=== PATIENT | female | born 1990 | race American Indian/Alaskan Native ===

== ENCOUNTER 2018-03-28 08:53 | Inpatient (IN) | payer MEDICAID ==
[2018-03-28] MEDS ORDERED: ZOFRAN IV PRN (11:17)
[2018-03-28] MEDS ORDERED: NARCAN 0.4 MG/1 ML IV PRN (11:17)
[2018-03-28] MEDS ORDERED: SUBLIMAZE IV PRN (11:17)
[2018-03-28] MEDS ORDERED: BRETHINE SUB-Q PRN (11:17)
[2018-03-28] MEDS ORDERED: BRETHINE IVP PRN (11:17)
[2018-03-28] MEDS ORDERED: MINERAL OIL PO PRN (11:17)
[2018-03-28] MEDS ORDERED: LACTATED RINGERS 1,000 ML ONE (11:22)
--- NOTE | 2018-03-28 11:24 | History and Physical Report ---
History of Present Illness Date of examination: 03/28/18 Date of admission: 03/28/2018 Chief complaint: Labor Pains History of present illness: Late entry to care at 15 2/7 Weeks, 2nd trimester complicated by a UTI (GBS), treated with Amoxicillin. course also complicated by Vitamin D Deficiency and Anemia. Past History Past Medical History: no pertinent history Past Surgical History: no surgical history Family/Genetic History: none Social history: no significant social history, single - Obstetrical History Expected Date of Delivery: 04/02/18 Actual Gestation: 39 Week(s) 2 Day(s) : 5 Para: 2 Hx # Term Pregnancies: 2 Spontaneous Abortions: 1 Induced : 1 Number of Living Children: 2 #2 Infant Gender: Male year: 2,011 Birthweight: 3.033 kg Method of Delivery: Vaginal Gestational age at delivery: 41 Complications: none #3 Infant Gender: Male year: 2,014 Birthweight: 3.487 kg Method of Delivery: Vaginal Gestational age at delivery: 41 Complications: none Medications and Allergies Allergies Allergy/AdvReac Type Severity Reaction Status Date / Time No Known Allergies Allergy Verified 05/29/13 15:01 Home Medications Medication Instructions Recorded Confirmed Last Taken Type Clotrimazole [Clotrimazole 3 VAG] 1 applicator [facility] #3 cream.appl 05/29/13 01/03/14 Unknown Rx Ferrous Sulfate [Iron Supplement 325 mg PO BID #60 tablet 05/29/13 01/03/14 12/30/13 Rx 325 Mg tab] 1 Review of Systems All systems: negative - Vital Signs Vital signs: Vital Signs Temp Pulse Resp BP 98.4 F 94 H 20 102/57 03/28/18 10:15 03/28/18 10:15 03/28/18 10:15 03/28/18 10:15 Temp Pulse Resp BP Pulse Ox 98.4 F 94 H 20 102/57 03/28/18 10:15 03/28/18 10:17 03/28/18 10:15 03/28/18 10:17 - Physical Exam Breasts: Positive: normal Cardiovascular: Regular rate Lungs: Positive: Clear to auscultation, Normal air movement Abdomen: Positive: normal appearance, soft, normal bowel sounds Genitourinary (Female): Positive: normal external genitalia, normal perenium Vagina: Positive: normal moisture Uterus: Positive: enlarged - Obstetrical FHR comments: FHR: 140, moderate varability, -accels, occ. early decel Uterine Contraction Monitor Mode: External Cervical Dilatation: 3 Cervical Effacement Percentage: 60 station: -3 Uterine Contraction Pattern: Irregular Uterine Tone Measurement Phase: Resting Uterine Contraction Intensity: Moderate Results All other labs normal. Assessment and Plan A: IUP @ 39 2/7 Weeks Equivocal NST Early Labor GBS Positive P: Admit to L&D per Routine Orders Pitocin Augmentation GBS Prophylaxis
[2018-03-28] MEDS: LACTATED RINGERS 1,000 ML IV SCH ×3 (11:31→20:12)
[2018-03-28] MEDS ORDERED: AMPICILLIN/NS 2 GM/100 ML 2 GM/100 ML BAG IV ONE ×2 (11:31→20:00)
[2018-03-28] MEDS ORDERED: PITOCin/NS 30 UNIT/500ML 30 UNITS/500 ML BAG IV SCH (12:00)
[2018-03-28] MEDS ORDERED: XYLOCAINE 2% INFILTRATI ONE (12:00)
[2018-03-28] MEDS ORDERED: PITOCin/NS 20 UNIT/1000ML DRIP 20 UNITS/1,000 ML BAG IV SCH (12:00)
[2018-03-28 12:19] LABS: Hematocrit 32.5 % (30.3-42.9); Hemoglobin 10.5 gm/dl (10.1-14.3); Mean Corpuscular HGB Conc 32 % (30-34); Mean Corpuscular Volume 82 fl (79-97); Platelet Count 331 K/mm3 (140-440); Red Blood Count 3.96 M/mm3 (3.65-5.03); Red Cell Distribution Width 17.7 % (13.2-15.2)
[2018-03-28] MEDS ORDERED: AMPICILLIN/NS 1 GM/50 ML 1 GM/50 ML BAG IV SCH (15:18)
[2018-03-28 19:30] VITALS: BP 114/70
--- NOTE | 2018-03-28 19:44 | Event Note ---
S: Patient reports good movement. NST reactive. Category I FHT. O: VSS A: 39 2/7wks Non-reactive not reactive NST Category FHT P 1. BPP for well being. If biophysical profile reassuring plan to discharge patient for follow-up in clinic with labor and kick count precautions.
--- NOTE | 2018-03-28 21:26 | Ultrasound Report ---
FINAL REPORT PROCEDURE: US OB BPP WO NON-STRESS TECHNIQUE: Real-time limited sonographic examination was performed for evaluation of size, pos ition, heartbeat, fluid volume for each fetus with image documentation (1 or more fetuses). CPT 7681 5 HISTORY: well being COMPARISON: No prior studies are available for comparison. FINDINGS: biophysical profile: breathing movements: 2. movements: 2. posterior and tone: 2. Qualitative amniotic fluid volume: 2. Total score: 8/8. Heart rate: 160 beats per minute. IMPRESSION: Normal biophysical profile.
--- NOTE | 2018-03-28 21:30 | Ultrasound Report ---
FINAL REPORT PROCEDURE: US OB LIMITED TECHNIQUE: Real-time limited sonographic examination was performed for evaluation of size, pos ition, heartbeat, fluid volume for each fetus with image documentation (1 or more fetuses). CPT 7681 5 HISTORY: AURELIA COMPARISON: No prior studies are available for comparison. FINDINGS: Fetus is in cephalic presentation. Amniotic fluid index is 9.9 centimeters which is within normal mcbride its. Heart rate is 151 beats per minute. Anatomic survey not performed. IMPRESSION: Fetus is in cephalic presentation. Amniotic fluid index is 9.9 centimeters which is within normal mcbride its. Heart rate is 151 beats per minute. Anatomic survey not performed.
--- NOTE | 2018-03-28 21:35 | Event Note ---
BPP 10/11 AURELIA 9.9 OB Appt 03/29/18 Plan discharge home with labor and kick count precautions.
[2018-03-29] MEDS ORDERED: AMPICILLIN/NS 1 GM/50 ML 1 GM/50 ML BAG IV SCH (00:30)
== END 2018-03-28 23:52 | disposition home or self-care (01) | DRG 781 ==
LOC: TRG 08:53 → LD 18:44 → TRG 18:44
PROVIDERS: ADMIT Obstetrics & Gynecology; ATTEND Obstetrics & Gynecology
DX: O99.013 Anemia complicating pregnancy, third trimester (principal); O99.820 Streptococcus B carrier state complicating pregnancy; D64.9 Anemia, unspecified; Z3A.39 39 weeks gestation of pregnancy
CPT/HCPCS: 36415; 76815; 76819; 85027; 86592; 86850; 86900; 86901; G0378; J0290; J7120

== ENCOUNTER 2018-04-05 13:58 | Outpatient (CLI) | payer MEDICAID ==
--- NOTE | 2018-04-05 15:20 | Ultrasound Report ---
BIOPHYSICAL PROFILE: INDICATION: well being. COMPARISON: 03/28/2018. TECHNIQUE: Transabdominal ultrasound with Doppler interrogation. 2 - breathing movements 2 - movements 2 - posture and tone 2 - Qualitative amniotic fluid volume 8 - TOTAL SCORE OF POSSIBLE 8 Heart Rate (bpm) 155 CONCLUSION: Findings, as above.
--- NOTE | 2018-04-05 15:24 | Ultrasound Report ---
OB LIMITED INDICATION: AURELIA. COMPARISON: 03/28/2018 TECHNIQUE: Transabdominal grayscale ultrasound with Doppler interrogation. Gestation: Ortega Position: Cephalic Amniotic Fluid: WNL (7-24 cm) AURELIA = 10 cm Heart Rate: 150 BPM CONCLUSION: Findings, as above.
[2018-04-05 15:45] VITALS: BP 112/70
== END 2018-04-05 16:28 | disposition home or self-care (01) ==
LOC: TRG 13:58
PROVIDERS: ATTEND Obstetrics & Gynecology
DX: O47.1 False labor at or after 37 completed weeks of gestation (principal); Z3A.40 40 weeks gestation of pregnancy
CPT/HCPCS: 59025; 76815; 76819

== ENCOUNTER 2018-04-06 09:40 | Inpatient (IN) | payer MEDICAID ==
[2018-04-06] MEDS ORDERED: LACTATED RINGERS 1,000 ML IV SCH ×2 (10:00→11:00)
[2018-04-06] MEDS ORDERED: SUBLIMAZE IV PRN (10:22)
[2018-04-06] MEDS ORDERED: BRETHINE SUB-Q PRN (10:22)
[2018-04-06] MEDS ORDERED: BRETHINE IVP PRN (10:22)
[2018-04-06] MEDS ORDERED: NARCAN 0.4 MG/1 ML IV PRN (10:22)
[2018-04-06] MEDS ORDERED: ZOFRAN IV PRN ×2 (10:22→11:52)
[2018-04-06] MEDS ORDERED: XYLOCAINE 2% INFILTRATI ONE (10:37)
[2018-04-06 10:38] LABS: Basophils # (Auto) 0.1 K/mm3 (0.0-0.1); Basophils % (Auto) 0.5 % (0.0-1.8); Eosinophils % (Auto) 0.3 % (0.0-4.3); Hematocrit 33.3 % (30.3-42.9); Hemoglobin 10.8 gm/dl (10.1-14.3); Lymphocytes # (Auto) 1.1 K/mm3 (1.2-5.4); Lymphocytes % (Auto) 9.8 % (13.4-35.0); Mean Corpuscular HGB Conc 33 % (30-34); Mean Corpuscular Volume 81 fl (79-97); Monocytes # (Auto) 0.9 K/mm3 (0.0-0.8); Monocytes % (Auto) 7.5 % (0.0-7.3); Platelet Count 321 K/mm3 (140-440); Red Blood Count 4.11 M/mm3 (3.65-5.03); Red Cell Distribution Width 17.4 % (13.2-15.2)
[2018-04-06] MEDS ORDERED: PITOCin/NS 30 UNIT/500ML 30 UNITS/500 ML BAG IV SCH (11:00)
[2018-04-06] MEDS ORDERED: AMPICILLIN/NS 2 GM/100 ML 2 GM/100 ML BAG IV ONE (11:00)
--- NOTE | 2018-04-06 11:15 | History and Physical Report ---
History of Present Illness Date of examination: 04/06/18 Date of admission: 04/06/18 10:43 Chief complaint: Contractions History of present illness: 28 yo AA Fe LMP 06/26/2017, FRANCO 04/02/2018 (LMP), 40weeks 4 days. B positive, Rubella Immune, GBS positive. Presents to triage in active labor. Pt initiated late care with [facility] at 15 2/7 weeks. Her was complicated with Anemia( FeS04 325mg PO BID), Vitamin D deficicency (D3 supplementation), GBS bacteriuria. 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 denies: smoking, alcohol abuse, prescription drug abuse, IV drug use - Obstetrical History Expected Date of Delivery: 04/02/18 Actual Gestation: 40 Week(s) 4 Day(s) : 5 Para: 2 Hx # Term Pregnancies: 2 Number of Pregnancies: 0 Spontaneous Abortions: 1 Induced : 1 Number of Living Children: 2 #1 Gender: Male year: 2,011 Birthweight: 3.033 kg Method of Delivery: Vaginal Gestational age at delivery: 41 Complications: none #2 Gender: Male year: 2,014 Birthweight: 3.487 kg Method of Delivery: Vaginal Gestational age at delivery: 41 Complications: none Medications and Allergies Allergies Allergy/AdvReac Type Severity Reaction Status Date / Time No Known Allergies Allergy Verified 04/06/18 09:46 Home Medications Medication Instructions Recorded Confirmed Last Taken Type Clotrimazole [Clotrimazole 3 VAG] 1 applicator [facility] #3 cream.appl 05/29/13 01/03/14 Unknown Rx Ferrous Sulfate [Iron Supplement 325 mg PO BID #60 tablet 05/29/13 01/03/14 12/30/13 Rx 325 Mg tab] 1 Active Meds: Active Medications Ephedrine Sulfate (Ephedrine Sulfate) 10 mg IV Q2M PRN PRN Reason: Hypotension Fentanyl (Sublimaze) 100 mcg IV Q2H PRN PRN Reason: Labor Pain Lactated Ringer's (Lactated Ringers) 1,000 mls @ 125 mls/hr IV DIRECT [place] Oxytocin/Sodium Chloride (Pitocin/Ns 20 Unit/1000ml Drip) 20 units in 1,000 mls @ 125 mls/hr IV DIRECT [place] Oxytocin/Sodium Chloride (Pitocin/Ns 30 Unit/500ml) 30 units in 500 mls @ 2 mls/hr IV TITR [place]; Protocol Ampicillin Sodium (Polycillin/Ns 2 Gm/100 Ml) 2 gm in 100 mls @ 100 mls/hr IV ONCE ONE Stop: 04/06/18 11:59 Naloxone HCl (Narcan 0.4 Mg/1 Ml) 0.1 mg IV Q2MIN PRN PRN Reason: Res Rate </= 8 or 02 SAT < 92% Ondansetron HCl (Zofran) 4 mg IV Q8H PRN PRN Reason: Nausea And Vomiting Terbutaline Sulfate (Brethine) 0.25 mg SUB-Q ONCE PRN PRN Reason: Hyperstimulation/Hypertonicity Terbutaline Sulfate (Brethine) 0.25 mg IVP ONCE PRN PRN Reason: Hyperstimulation/Hypertonicity Review of Systems Eyes: normal appearance Cardiovascular: no chest pain, no shortness of breath Respiratory: no shortness of breath Breasts: normal Gastrointestinal: abdominal pain, no nausea, no vomiting, no diarrhea, no constipation Genitourinary: normal appearance, leakage of fluid (SROM in Triage), contractions, no vaginal bleeding, no genital sores Integumentary: no rash, no sores, no lesions - Vital Signs Vital signs: Vital Signs Pulse BP 88 126/75 04/06/18 10:58 04/06/18 10:58 Temp Pulse Resp BP Pulse Ox 88 126/75 04/06/18 10:58 04/06/18 10:58 - Physical Exam Breasts: Positive: normal Cardiovascular: Regular rate, Normal S1, Normal S2, No murmurs Lungs: Positive: Clear to auscultation, Normal air movement Abdomen: Positive: normal appearance, soft, normal bowel sounds. Negative: distention Genitourinary (Female): Positive: normal external genitalia, normal perenium Vulva: both: normal Vagina: Positive: other (Clear fluid leaking from vaginia). Negative: normal moisture Uterus: Positive: enlarged (gravid; S=D) Anus/Rectum: Positive: normal perianal skin Extremities: Positive: normal Deep Tendon Reflex Grade: Normal +2 - Obstetrical FHR: auscultation normal, category 1 Uterine Contraction Monitor Mode: External Cervical Dilatation: 7 (4 on admission to Triage) Cervical Effacement Percentage: 90 station: 0 Uterine Contraction Frequency (min): 2 Uterine Contraction Pattern: Regular Uterine Tone Measurement Phase: Resting Uterine Contraction Intensity: Strong/Firm Results Result Diagrams: 04/06/18 10:22 Abnormal lab results 04/06/18 Range/Units 10:22 WBC 11.5 H (4.5-11.0) K/mm3 MCH 26 L (28-32) pg RDW 17.4 H (13.2-15.2) % Lymph % (Auto) 9.8 L (13.4-35.0) % Edgar % (Auto) 7.5 H (0.0-7.3) % Lymph # 1.1 L (1.2-5.4) K/mm3 Edgar # 0.9 H (0.0-0.8) K/mm3 Seg Neutrophils % 81.9 H (40.0-70.0) % Seg Neutrophils # 9.4 H (1.8-7.7) K/mm3 All other labs normal. Assessment and Plan A: Term IUP at 40w4d Active labor GBS positive Category 1 tracing P: Admit o L&D GBS prophylaxis Anticiapte
[2018-04-06] MEDS: PITOCin/NS 20 UNIT/1000ML DRIP 20 UNITS/1,000 ML BAG IV SCH ×2 (11:24→13:34)
--- NOTE | 2018-04-06 11:51 | Procedure Note ---
OB Delivery Note - Delivery Date of Delivery: 04/06/18 Surgeon: PAWEL JACKSON (JUNG) Estimated blood loss: 100cc - Vaginal Delivery presentation: vertex Delivery position: OA Intrapartum events: precipitous labor- <3hr Delivery induction: none Delivery monitor: external FHT, external uterine Route of delivery: (11:19) Delivery placenta: spontaneous (Coll[place]) Delivery cord: 3 umbilical vessels Episiotomy: none Delivery laceration: none Anesthesia: none Delivery comments: Mom in far left lateral position, unmedicated viable male infant, LUC pos ition over intact perineum at 11:19. Strong lusty cry. Mom then positioned to semi-fowlers and placed skin to skin on her abdomen. Delayed cord clamping then cut by Pts mother. Spontaneous collado delivery of intact placenta at 11:24. FF@U-2. Perineum intact, no tears or lacerations. EBL 100cc. Infant and mother left in stable condition in L&D. - Infant A at 1 minute: 8 at 5 minutes: 9 Gender: Male (3390 grams, 7lbs 8 oz, 19")
[2018-04-06] MEDS ORDERED: LANSINOH TP PRN (11:52)
[2018-04-06] MEDS ORDERED: DULCOLAX PR PRN (11:52)
[2018-04-06] MEDS ORDERED: MILK OF MAGNESIA PO PRN (11:52)
[2018-04-06] MEDS ORDERED: BENADRYL PO PRN (11:52)
[2018-04-06] MEDS ORDERED: TYLENOL PO PRN (11:52)
[2018-04-06] MEDS ORDERED: TUCKS PAD TP PRN (11:52)
[2018-04-06] MEDS ORDERED: NORCO 5/325 PO PRN (11:52)
[2018-04-06] MEDS ORDERED: SODIUM CHLORIDE FLUSH SYRINGE 10 ML IV SCH (12:00)
[2018-04-06] MEDS: IBUPROFEN PO SCH ×2 (13:33→18:15)
[2018-04-06 23:07] LABS: Hematocrit 30.7 % (30.3-42.9); Hemoglobin 9.8 gm/dl (10.1-14.3)
[2018-04-07] MEDS: IBUPROFEN PO SCH ×3 (00:10→14:09)
[2018-04-07] MEDS: FEOSOL PO SCH ×2 (16:10→22:40)
--- NOTE | 2018-04-07 22:54 | Progress Note ---
Assessment and Plan A: day 1 S/P . Anemia. P: Supplment with iron. Anticipate discharge tomorrow. Subjective - Subjective Date of service: 04/07/18 Principal diagnosis: day 1 S/P Patient reports: appetite normal, voiding normally, pain well controlled, flatus, ambulating normally, no dizzy ambulation, no nauseated : doing well Objective - Vital Signs Latest vital signs: Vital Signs Temp Pulse Resp BP 04/07/18 16:44 98.2 F 82 18 108/64 04/07/18 10:18 75 18 103/65 04/07/18 08:03 97.5 F L 72 18 84/50 04/07/18 07:45 18 04/07/18 00:00 98.4 F 71 18 106/68 Intake and Output 04/07/18 04/07/18 04/07/18 07:59 15:59 23:59 Intake Total 120 360 360 Output Total 300 Balance -180 360 360 Intake: Oral 360 360 Intake, Free Water 120 Output: Urine 300 Void 300 Other: Total, Intake Amount 360 360 Total, Output Amount 300 # Voids Void 1 - Exam Cardiovascular: Present: Regular rate, Normal S1, Normal S2 Lungs: Present: Clear to auscultation Abdomen: Present: normal appearance, soft. Absent: distention, tenderness, guarding, rigidity Uterus: Present: normal, firm, fundal height below umbilicus. Absent: bogginess, tenderness Extremities: Present: normal. Absent: tenderness, edema - Labs Labs: Abnormal lab results 04/06/18 Range/Units 22:37 Hgb 9.8 L (10.1-14.3) gm/dl
[2018-04-08] MEDS: IBUPROFEN PO SCH ×2 (00:54→06:39)
[2018-04-08] MEDS: FEOSOL PO SCH (10:00)
--- NOTE | 2018-04-08 18:09 | Progress Note ---
Assessment and Plan A: day 2 S/P . Anemia. P: Discharge patient home today. Advised patient to continue taking her iron supplements at home. discharge instructions and warning signs discussed in detail with pt. Advised patient to avoid IC, lifting and heavy housework, and driving. Advised patient to return promptly if any warning signs or problems. Advised patient to follow up at [facility] in 6 weeks for exam. Patient voiced understanding of all instructions. Subjective - Subjective Date of service: 04/08/18 Principal diagnosis: day 2 S/P Interval history: day 2 S/P . Doing well. Patient desires discharge today. Patient is voiding without difficulty. She reports a small amount of lochia. She is ambulating well. She is tolerating a regular diet without nausea or vomiting. Patient denies headache, chest pain, cough, shortness of breath, abdominal pain, leg pain, heavy vaginal bleeding or any other problems. Patient reports: appetite normal, voiding normally, pain well controlled, flatus, ambulating normally, no dizzy ambulation, no nauseated [place]: doing well Objective - Vital Signs Latest vital signs: Vital Signs Temp Pulse Resp BP 04/08/18 07:30 97.6 F 63 18 93/57 04/08/18 01:10 98.3 F 70 18 103/73 Intake and Output 04/08/18 04/08/18 04/08/18 07:59 15:59 23:59 Intake Total 720 Balance 720 Intake: Oral 240 Intake, Free Water 480 Other: Total, Intake Amount 240 # Voids Void 3 - Exam Narrative Exam: BP 102/59. Pulse 68 bpm. Cardiovascular: Present: Regular rate, Normal S1, Normal S2, No murmurs Lungs: Present: Clear to auscultation Abdomen: Present: normal appearance, soft, normal bowel sounds. Absent: distention, tenderness, guarding, rigidity Uterus: Present: normal, firm, fundal height below umbilicus. Absent: bogginess, tenderness Extremities: Present: normal. Absent: tenderness, edema
--- NOTE | 2018-04-08 18:12 | Discharge Summary ---
Providers - Providers Date of Admission: 04/06/18 10:43 Date of discharge: 04/08/18 Attending physician: MALLIKA LOCKE MD None Primary care physician: Homero Ackerman [facility]PER[facility] Hospitalization Reason for admission: active labor Delivery: Episiotomy: none Laceration: none Other procedures: none Discharge diagnosis: IUP at term delivered baby: male Pertinent studies: Labs Hospital course: Normal hospital course. Condition at discharge: Good Disposition: DC-01 TO HOME OR SELFCARE - Discharge Diagnoses (1) Term delivered Status: Acute Plan - Provider Discharge Summary Activity: routine, no sex for 6 weeks, no heavy lifting 4 weeks, no strenuous exercise Diet: routine Instructions: routine Additional instructions: Call your doctor immediately for: * Fever > 100.5 * Heavy vaginal bleeding ( >1 pad per hour) * Severe persistent headache * Shortness of breath * Reddened, hot, painful area to leg or breast - Follow up plan Follow up: MALLIKA LOCKE MD [Family Provider] - 6 Weeks
[2018-04-08 20:02] VITALS: BP 100/67
== END 2018-04-08 19:30 | disposition home or self-care (01) | DRG 775 ==
LOC: TRG 09:40 → LD 10:43 → OB 14:12
PROVIDERS: ADMIT Obstetrics & Gynecology; ATTEND Obstetrics & Gynecology
PROC: 10E0XZZ Delivery of Products of Conception, External Approach (ICD-10-PCS; principal; 2018-04-06)
DX: O99.824 Streptococcus B carrier state complicating childbirth (principal); O62.3 Precipitate labor; Z37.0 Single live birth; Z3A.40 40 weeks gestation of pregnancy
CPT/HCPCS: 36415; 59025; 76815; 76819; 85014; 85018; 85025; 86850; 86900; 86901; G0378; A6250; J0290; J2590; J3010; J7120

== ENCOUNTER 2019-09-13 13:09 | Emergency (ER) | payer SELFPAY ==
--- NOTE | 2019-09-13 13:47 | Event Note ---
ED Screening Note ED Screening Note: pt presents with cough, congestion, body aches, chills, nausea began two days ago fatigue, lightheaded no v/d PMHx none no allergies to meds LNMP: 08/19/2019 repeat vitals with O2 100% on RA, and HR is 98 bpm This initial assessment/diagnostic orders/clinical plan/treatment(s) is/are subject to change based on patients health status, clinical progression and re- assessment by fellow clinical providers in the ED. Further treatment and workup at subsequent clinical providers discretion. Patient/guardian urged not to elope from the ED as their condition may be serious if not clinically assessed and managed. Initial orders include: labs CXR
[2019-09-13 14:41] LABS: Basophils % (Auto) 0.4 % (0.0-1.8); Eosinophils # (Auto) 0.1 K/mm3 (0.0-0.4); Eosinophils % (Auto) 0.6 % (0.0-4.3); Hematocrit 39.4 % (30.3-42.9); Hemoglobin 12.8 gm/dl (10.1-14.3); Lymphocytes # (Auto) 0.9 K/mm3 (1.2-5.4); Lymphocytes % (Auto) 9.5 % (13.4-35.0); Mean Corpuscular HGB Conc 33 % (30-34); Mean Corpuscular Volume 87 fl (79-97); Monocytes # (Auto) 0.8 K/mm3 (0.0-0.8); Monocytes % (Auto) 7.9 % (0.0-7.3); Platelet Count 293 K/mm3 (140-440); Red Blood Count 4.55 M/mm3 (3.65-5.03); Red Cell Distribution Width 13.8 % (13.2-15.2)
[2019-09-13 14:50] LABS: Alanine Aminotransferase 11 units/L (7-56); Albumin 4.3 g/dL (3.9-5); BUN/Creatinine Ratio 10; Blood Urea Nitrogen 8 mg/dL (7-17); Calcium 8.9 mg/dL (8.4-10.2); Hemolysis Index 9
--- NOTE | 2019-09-13 14:54 | XRay Report ---
CHEST 2 VIEWS INDICATION / CLINICAL INFORMATION: cough, chills. COMPARISON: None available. FINDINGS: SUPPORT DEVICES: None. HEART / MEDIASTINUM: No significant abnormality. LUNGS / PLEURA: No significant pulmonary or pleural abnormality. No pneumothorax. ADDITIONAL FINDINGS: No significant additional findings. IMPRESSION: 1. No acute findings. Signer Name: Vidal Flores MD Signed: 09/13/2019 2:50 PM Workstation Name: [id number]
[2019-09-13 16:27] VITALS: BP 115/63
--- NOTE | 2019-09-13 16:53 | Emergency Department Report ---
ED Shortness of Breath HPI - General Chief Complaint: Dyspnea/Respdistress Stated Complaint: MOSES Time Seen by Provider: 09/13/19 16:25 Source: patient Mode of arrival: Ambulatory Limitations: No Limitations - History of Present Illness Initial Comments: Patient is a 29-year-old female that presents emergency room with complaints of shortness of breath and cough. Patient states her symptoms started yesterday. Patient states her shortness of breath is worsening. Patient dates her cough is worsening. Patient denies fever. Patient complains of chills. Patient complains of nausea without vomiting. Patient denies diarrhea. Patient denies loss of smell. Patient states her shortness of breath is better with rest and worse with exertion. Patient states she has not been tested for COVID. Patient denies recent travel. Patient denies recent international travel. Patient denies exposure to the novel coronavirus. Patient denies sick contacts. Patient denies fever. Patient denies diarrhea. Patient denies coming in contact with anybody with symptoms of the novel coronavirus. Complaint: shortness of breath, cough -: Sudden - Related Data Home Medications Medication Instructions Recorded Confirmed Last Taken Vit No.130/Iron/Folic 1 tab PO QDAY 04/06/18 04/06/18 04/05/18 [ Tablet] Previous Rx's Medication Instructions Recorded Last Taken Type Ferrous Sulfate [Iron Supplement 325 mg PO BID #60 tablet 05/29/13 04/05/18 Rx 325 Mg tab] Ondansetron [Zofran Odt] 4 mg PO Q6HR PRN #12 tab.rapdis 09/13/19 Unknown Rx Allergies Allergy/AdvReac Type Severity Reaction Status Date / Time No Known Allergies Allergy Verified 04/06/18 09:46 ED Review of Systems ROS: Stated complaint: MOSES Other details as noted in HPI Constitutional: chills. denies: fever Eyes: denies: eye pain, eye discharge, vision change ENT: denies: ear pain, throat pain Respiratory: cough, shortness of breath. denies: wheezing Cardiovascular: denies: chest pain, palpitations Endocrine: no symptoms reported Gastrointestinal: nausea. denies: abdominal pain, vomiting, diarrhea Genitourinary: denies: urgency, dysuria, discharge Musculoskeletal: denies: back pain, joint swelling, arthralgia Skin: denies: rash, lesions Neurological: denies: headache, weakness, paresthesias Psychiatric: denies: anxiety, depression Hematological/Lymphatic: denies: easy bleeding, easy bruising ED Past Medical Hx - Past Medical History Previous Medical History?: No Hx Hypertension: No Hx Heart Attack/AMI: No Hx Congestive Heart Failure: No Hx Diabetes: No Hx Deep Vein Thrombosis: No Hx Renal Disease: No Hx Sickle Cell Disease: No Hx Seizures: No Hx Asthma: No Hx COPD: No Hx HIV: No - Surgical History Past Surgical History?: No - Family History Family history: no significant - Social History Smoking Status: Never Smoker Substance Use Type: None - Medications Home Medications: Home Medications Medication Instructions Recorded Confirmed Last Taken Type Ferrous Sulfate [Iron Supplement 325 mg PO BID #60 tablet 05/29/13 04/06/18 04/05/18 Rx 325 Mg tab] Vit No.130/Iron/Folic 1 tab PO QDAY 04/06/18 04/06/18 04/05/18 History [ Tablet] Ondansetron [Zofran Odt] 4 mg PO Q6HR PRN #12 tab.rapdis 09/13/19 Unknown Rx ED Physical Exam - General Limitations: No Limitations General appearance: alert, in no apparent distress - Head Head exam: Present: atraumatic, normocephalic - Eye Eye exam: Present: normal appearance - ENT ENT exam: Present: mucous membranes moist - Neck Neck exam: Present: normal inspection - Respiratory Respiratory exam: Present: normal lung sounds bilaterally. Absent: respiratory distress, wheezes, rales, rhonchi, chest wall tenderness, accessory muscle use, decreased breath sounds - Cardiovascular Cardiovascular Exam: Present: regular rate, normal rhythm. Absent: systolic murmur, diastolic murmur, rubs, gallop - GI/Abdominal GI/Abdominal exam: Present: soft, normal bowel sounds. Absent: distended, tenderness, guarding - Extremities Exam Extremities exam: Present: normal inspection - Back Exam Back exam: Present: normal inspection - Neurological Exam Neurological exam: Present: alert, oriented X3 - Psychiatric Psychiatric exam: Present: normal affect, normal mood - Skin Skin exam: Present: warm, dry, intact, normal color. Absent: rash ED Course Vital Signs 09/13/19 09/13/19 09/13/19 13:12 13:49 16:26 Temperature 97.9 F Pulse Rate 136 H 98 H 93 H Respiratory 20 16 Rate Blood Pressure 108/70 Blood Pressure 115/63 [Right] O2 Sat by Pulse 100 100 100 Oximetry - Reevaluation(s) Reevaluation #1: Patient initially found to be tachycardic and the tachycardia had resolved prior to initial evaluation. Patient ambulated with a pulse ox. Patient did not desat during ambulation. Patient pulse ox remained stable at 98%. Patient is stable for discharge. I discussed all results and clinical findings with patient. I discussed plan of care with patient. Patient agrees with plan of care. Patient is stable for d ischarge. Patient will be discharged home. Patient given discharge instructions. Patient voiced understanding of discharge instructions. 09/13/19 16:57 ED Medical Decision Making - Lab Data Result diagrams: 09/13/19 14:07 09/13/19 14:07 - Radiology Data Radiology results: report reviewed, image reviewed CHEST 2 VIEWS INDICATION / CLINICAL INFORMATION: cough, chills. COMPARISON: None available. FINDINGS: SUPPORT DEVICES: None. HEART / MEDIASTINUM: No significant abnormality. LUNGS / PLEURA: No significant pulmonary or pleural abnormality. No pneumothorax. ADDITIONAL FINDINGS: No significant additional findings. IMPRESSION: 1. No acute findings. - Medical Decision Making Patient is a 29-year-old female that presents emergency room with complaints of shortness of breath and cough. Patient also complains of chills and nausea wi thout vomiting. Patient's symptoms are consistent with a suspected [place] infection. Patient instructed to have further COVID testing done and to self quarantine for 14 days. COVID instructions given to patient. Strict return to ER instructions given to patient. - Differential Diagnosis COVID, URI, S OB, cough, chills Critical care attestation.: If time is entered above; I have spent that time in minutes in the direct care of this critically ill patient, excluding procedure time. ED Disposition Clinical Impression: Cough, Chills, SOB (shortness of breath), Suspected COVID-19 virus infection URI (upper respiratory infection) Qualifiers: URI type: unspecified URI Qualified Code(s): J06.9 - Acute upper respiratory infection, unspecified Disposition: DC-01 TO HOME OR SELFCARE Is pt being admited?: No Does the pt Need Aspirin: No Condition: Stable Instructions: COVID-19, Acetaminophen (By mouth), Fever in Adults (ED) Additional Instructions: Patient to follow-up with primary care in 2 to 3 days. Patient to follow-up with health department and public health for further COVID testing. Patient to self quarantine for 14 days. Patient to avoid ibuprofen and NSAIDs. Patient to rest. Patient to increase water. Patient to take Tylenol as needed for pain. Patient to take meds as directed. Patient to return to the ER if condition worsens, changes or new symptoms arise. Prescriptions: Ondansetron [Zofran Odt] 4 mg PO Q6HR PRN #12 tab.rapdis PRN Reason: Nausea And Vomiting Referrals: PRIMARY CARE, [Primary Care Provider] - 2-3 Days Time of Disposition: 16:56
== END 2019-09-13 17:15 | disposition home or self-care (01) ==
LOC: ED 13:09
DX: J06.9 Acute upper respiratory infection, unspecified (principal); Z20.828 Contact with and (suspected) exposure to other viral communicable diseases; Z79.899 Other long term (current) drug therapy
CPT/HCPCS: 36415; 71046; 80053; 85025